=== PATIENT | male | born 2000 | race Caucasian/White ===

== ENCOUNTER → 2020-12-05 | Outpatient (CLI) | payer BC ==
--- NOTE | 2020-12-05 18:11 | Diagnostic Imaging Report ---
PROCEDURE: CT head without contrast. TECHNIQUE: Multiple contiguous axial images were obtained through the brain without the use of intravenous contrast. Auto Exposure Controls were utilized during the CT exam to meet ALARA standards for radiation dose reduction. INDICATION: Headache, concussion. FINDINGS: The ventricles are normal in size, shape and position. There is no mass or hemorrhage. There is no extra-axial fluid collection. IMPRESSION: Negative CT head. Dictated by: Dictated on workstation # [id number]
== END ==
LOC: RAD 17:34
PROVIDERS: ATTEND Nurse Practitioner Family
DX: S06.0X0A Concussion without loss of consciousness, initial encounter (principal); G25.2 Other specified forms of tremor; W22.09XA Striking against other stationary object, initial encounter
CPT/HCPCS: 70450